=== PATIENT | male | born 1960 | race Caucasian/White ===

== ENCOUNTER 2022-10-30 08:09 | Outpatient (CLI) | payer OTHER, SELFPAY | END 2022-10-30 08:10 | disposition home or self-care (01) | LOC: NFLDREF 12:33 | PROVIDERS: PCP Family Medicine; Referring Provider Family Medicine; Visit Provider Family Medicine | DX: Z00.00 Encounter for general adult medical examination without abnormal findings (principal); I10 Essential (primary) hypertension; E78.5 Hyperlipidemia, unspecified | CPT/HCPCS: 80053; 80061 ==

== ENCOUNTER 2022-11-17 09:03 | Day surgery (SDC) | payer OTHER, SELFPAY ==
[2022-11-17] VITALS (9 sets, daily range): BP systolic 133–150; BP diastolic 72–89; PULSE 60–69; RESP 12–16; TEMP 24.9–36.2; O2SAT 97–100; BMI 28.3
[2022-11-17] MEDS: LACTATED RINGERS 1000 ML 1,000 ML 100 ML IV ×2 (10:14→10:51)
--- NOTE | 2022-11-17 10:21 | W.ANESCHARGE ---
Anesthesia Charges Start Date/Time Anesthesia Start Date: 11/17/22 Anesthesia Start Time: 10:22 Stop Date/Time Anesthesia Stop Date: 11/17/22 Anesthesia Stop Time: 11:48
--- NOTE | 2022-11-17 10:21 | PM.GSPRC ---
Operative Note Pre-op diagnosis: 1. Right inguinal hernia. 2. Right lower quadrant abdominal wall lipoma. Post-op diagnosis: 1. Direct right inguinal hernia. 2. Right lower quadrant lipoma. Type of Procedure: 1. Excision of right lower quadrant lipoma 8 x 2 cm. 2. Open right inguinal hernia repair with mesh. Indications: 62-year-old male was seen in clinic with an enlarging right inguinal hernia. Patient was evaluated with this right inguinal hernia a while ago but because it was not symptomatic, patient did not proceed with surgery. When patient was outside of the country last May and was walking a lot, he noticed right inguinal pain. The pain was worse by the end of the day and better in the morning. Patient was also coughing a lot and noticed that the pain was worse with coughing. On clinical exam with the patient standing up he had a moderately-sized right inguinal hernia. This was reducible. He also had a small asymptomatic left inguinal hernia. Given patient's clinical symptoms and his pain on the right side, an open right inguinal hernia repair was recommended. The procedure was discussed in detail. Risks associated procedure including infection, bleeding, nerve pain, and hernia recurrence were all discussed with the patient, he agreed to proceed. In same-day surgery patient was also noted to have a lipoma in the lateral inguinal canal. This was not painful and has been present for a while. Patient desired this to be removed. Procedure Description: After discussing the risks and benefits of the procedure, the patient signed informed consent.? The operative site was marked and the patient was brought to the operating room and placed on the operating table in supine position.? Care was taken to pad the patient's pressure points.?? The patient was then intubated by anesthesia.?? The operative site was then prepped and draped in the usual sterile fashion.? A time-out was then performed. Surgical site was prepped and draped in sterile fashion. Site of the incision was marked with a marking pen and local anesthetic was injected. An oblique incision was made just above and medial to the right inguinal ligament. Subcutaneous tissue was dissected to external obliques. I first proceeded with excision of the right lower quadrant lipoma. The soft tissue just lateral to the already made incision was divided with cautery until a well circumscribed elongated fatty tumor was identified. This was dissected bluntly and with cautery. It had a vascular appearing pedicle which was clamped and tied with Vicryl tie. The fatty tumor was removed and sent to pathology. It was measuring approximately 8 x 2 cm. Hemostasis was achieved with cautery. I then proceeded with the right inguinal hernia repair. Superficial subcutaneous vascular branches were clamped, divided and tied with 3-0 Vicryl ties. Small incision was made through the external oblique aponeurosis with scalpel. I then used Metzenbaum scissors to dissect under external obliques and extend my incision. Mosquito clamps were placed on the edges of external oblique exposing the inguinal floor. The right Ilioinguinal nerve was identified and was medial to the plane of dissection. This was not excised. I then identified the spermatic cord and the hernia sac. There were was direct inguinal hernia was protruding peritoneal fat. I bluntly dissected subcutaneous tissues around the spermatic cord in order to place Renny drain around the cord structures. Cremasteric fibers were peeled off and dissected off the hernia sac and cord structures. There was an indirect cord lipoma but no evidence of indirect hernia. The cord lipoma was excised with cautery. An extra-large Bard mesh plug was inserted into the preperitoneal space where direct hernia was identified. This was sutured in place with 0-0 Nurolon covering the plug with [place] tissue. A Bard mesh onlay was also used for hernia repair. The mesh onlay was sutured in place with interrupted 0-0 Neurolon sutures to the conjoint tendon medially and shelving edge laterally, pubic tubercle inferiorly. This mesh onlay overlapped the area of mesh plug. Simple interrupted sutures were placed using 0-0 Neurolon at the base of internal inguinal ring making it only large enough to fit a tip of one finger through. Spermatic cord was placed back into scrotum. [place] drain was removed. External oblique aponeurosis was closed with a running 3-0 Vicryl. Additional local anesthetic was injected into subcutaneous tissues. Merlene's fascia and subcutaneous tissue was re-approximated with interrupted Vicryl stitches. Skin incision was closed with 4-0 Monocryl subcuticular stitch. Steri strips and sterile dressing were applied over incision. All counts were correct at the end of the case. Patient tolerated this procedure well and was transferred to PACU in stable condition. Findings: Right lower quadrant lateral abdominal wall lipoma. Direct inguinal hernia Implants: Mesh plug and mesh onlay. Anesthesia: GETA Surgeon: Kurt Mendez MD Estimated blood loss (mL): 5 Additional Specimen Information: 1. Right lower quadrant abdominal wall mass, grossly appearing as lipoma. Condition: stable Disposition: PACU
[2022-11-17] MEDS: CEFAZOLIN 2 GM INJ IVP (10:33)
[2022-11-17] MEDS: BUPIVACAINE 0.25% 30 ML INJECTION (11:30)
--- NOTE | 2022-11-17 11:50 | W.ANESCHARGE ---
Anesthesia Charges Start Date/Time Anesthesia Start Date: 11/17/22 Anesthesia Start Time: 10:22 Stop Date/Time Anesthesia Stop Date: 11/17/22 Anesthesia Stop Time: 11:48
== END 2022-11-17 13:00 | disposition home or self-care (01) ==
PROVIDERS: PCP Family Medicine; Visit Provider Surgery
PROC: (CPT 49505; principal; 2022-11-17 10:45)
DX: K40.90 Unilateral inguinal hernia, without obstruction or gangrene, not specified as recurrent (principal); D17.1 Benign lipomatous neoplasm of skin and subcutaneous tissue of trunk
CPT/HCPCS: 49505; 22903; 830; 88305; C1781; J0330; J0665; J0690; J1100; J2250; J2405; J2704; J3010; J3490; J7120

== ENCOUNTER 2023-11-23 08:16 | Outpatient (CLI) | payer OTHER, SELFPAY | END 2023-11-23 08:17 | disposition home or self-care (01) | LOC: NFLDREF 11-26 06:17 | PROVIDERS: PCP Family Medicine; Referring Provider Family Medicine; Visit Provider Family Medicine | DX: Z00.00 Encounter for general adult medical examination without abnormal findings (principal); E78.5 Hyperlipidemia, unspecified; I10 Essential (primary) hypertension | CPT/HCPCS: 80053; 80061 ==

== ENCOUNTER 2023-12-03 08:18 | Outpatient (CLI) | payer OTHER, SELFPAY ==
--- NOTE | 2023-12-03 08:30 | CRLHL7_ITS ---
For Patients: As a result of the Century Cures Act, medical imaging exams and procedure reports are released immediately into your electronic medical record. You may view this report before your referring provider. If you have questions, please contact your health care provider. INDICATION: Abnormal LFTs COMPARISON: 09/05/2021 TECHNIQUE: Real time peck scale imaging and color Doppler analysis was performed of the right upper quadrant. FINDINGS: The liver measures 14.9 cm. Diffusely increased hepatic echotexture noted throughout the liver. No intrahepatic mass. There is a normal appearance of the hepatic IVC and proximal abdominal aorta. There is no evidence of ascites. The gallbladder is of normal size and there is no evidence of intraluminal stones or sludge. The gallbladder wall measures 1.1 mm in thickness. The common bile duct is of normal size and measures 4.3 mm in diameter at the level of the lion hepatis. The visualized pancreas appears normal. There is no evidence of a stone or hydronephrosis within the right kidney. The right kidney measures 11.6 cm in length. IMPRESSION: Diffuse hepatic steatosis, moderate. Remainder unremarkable. Dictated by Grabiel Cruz MD @ 12/03/2023 11:27:13 AM (Electronically Signed)
== END 2023-12-03 08:19 | disposition home or self-care (01) ==
PROVIDERS: PCP Family Medicine; Visit Provider Family Medicine
DX: R94.5 Abnormal results of liver function studies (principal); K76.0 Fatty (change of) liver, not elsewhere classified; R10.11 Right upper quadrant pain
CPT/HCPCS: 76705

== ENCOUNTER 2023-12-17 07:12 | Outpatient (CLI) | payer OTHER, SELFPAY ==
--- OUTSIDE RECORDS SUMMARY | 2023-12-17 07:15 | XMS_ITS | Continuity of Care Document ---
Author Organization [facility] Address [address] [address] [place] [address] Phone Care Team Providers Care Underground Supervisor Name Role Phone Griselda Alcantar CRNA Unavailable Unavailable Allergies, Adverse Reactions, Alerts Substance Reaction Status Criticality codeine headache, nausea, dry mouth Active No Information Medications Medication Instructions Dosage Effective Dates (start - stop) Status Comments hydrochlorothiazide 12.5 mg capsule take 1 Capsule by oral route every day 12.5 MG - Active simvastatin 40 mg tablet take 1 tablet b y ORAL route every day in the evening 40 MG - Active Procedures Procedure Date Colonoscopy Flex; Dx (sep Pro) 20 Colonoscopy Flex; W/bx 1/mx Level Iv-surg Path Gross/micro 15 Advance Directives Directive Yes / No Effective Date File Name No Information Encounters Encounter Description Practice Location Reason(s) For Visit Diagnoses Date Provider Providers Copied on Encounter [facility], [address] [address], [place], [id number], [place] tel:[phone] Sofia [facility] No Information 0 Ortiz Villalobos. [address] [facility], [facility] [address], [place], [place], [id number], [place]. tel:[phone] Referring Provider: Skylar Linares, [address] [facility] [address], [facility] [place], [address] . tel:[phone] [facility], [address] [address], [place], [id number], [place] tel:[phone] [facility] Personal history of colonic polypsFamily history of polyps in the colonEncounter for screening for malignant neoplasm of colonFamily history of colonic polypsPersonal history of colonic polyps 0 Catrachita Cheng. [address] [facility], [facility] [address], [place], [id number], [place]. tel:[phone] Referring Provider: Referral Self, USE FOR SELF REFERRALS. [facility], [address] [address], [place], [place], [id number], [place] tel:[phone] [facility] No Information 0 Jesse Rivera. [address] [facility], [facility] [address], [place], [id number], [place]. tel:[phone] [facility], [address] [address], [place], [place], [id number], [place] tel:[phone] [facility] Colon polypHemorrhoi dsPersonal history of colon polypFamily history of colon polypsFamily Hx/Colonic PolypsPersonal History Colon PolypsBenign Neoplasm ColonBenign neoplasm of colon, unspecifiedUns pecified hemorrhoidsPer jem history of colonic polypsFamily history of colonic polyps 5 No Information Referring Provider: Referral Self, USE FOR SELF REFERRALS. [facility], [address] [address], [place], [place], [id number], [place] tel:[phone] [facility] Colon Cancer Screening 5 Christian Nur. [address] [facility], [facility] [address], [place], [id number], [place]. tel:[phone] [facility], [address] [address], [place], [place], [id number], [place] tel:[phone] [facility] External Referral 5 Ang Araujo. [address] [facility], [facility] [address], [place], [id number], [place]. tel:[phone] Family History Family Member Type Diagnosis Age At Onset Father Problem (finding) Mother Problem (finding) malignant neoplasm of o vary Brother Problem (finding) Alive and well Father Problem (finding) Colon polyps Daughter Problem (finding) Alive and well Immunizations Vaccine Date Status Comments Influenza administered Note: [facility] bi-d irectional interface ; Source: Other Registry zoster vaccine recombinant administered N ote: [facility] bi-directional interface ; Source: Other Registry zoster vaccine recombinant administered N ote: [facility] bi-directional interface ; Source: Other Registry Influenza administered Note: [facility] bi-d irectional interface ; Source: Other Registry Influenza administered Note: [facility] bi-d irectional interface ; Source: Other Registry Fluzone Quad 6mo or older administered Note: [facility] bi-direct ional interface ; Source: Other Registry tetanus toxoid, reduced diphtheria toxoid, and acellular pertussis vaccine, adsorbed administered Note: [facility] b i-directional interface ; Source: Other Registry Influenza, seasonal, injectable administe red Note: [facility] bi- directional interface ; Source: Other Registry Influenza, seasonal, injectable administe red Note: [facility] bi- directional interface ; Source: Other Registry Novel [id number], all formulations administered Note: [facility] bi-direct ional interface ; Source: Other Registry Payers Payer name Insurance type Covered republican ID Authorjuliannea hoda(s) [employer] [facility] [id number] Social History Type Description Quantity Date Captured Comments Sex Male Smoking Status No Information Chief Complaint And Reason For Visit No Information Reason For Referral Reason For Referral No Information History Of Present Illness Encounter Date Complaint History Of Prese nt Illness No Information Functional Status Date Functional Assessmen t No Information Instructions Date Instruction Additional Infor mation Colon Cancer Prevention Related to Personal history of colonic polyps Colon Cancer Prevention Related to Colon polyp Colon Polyps Related to Colon polyp Hemorrhoids Related to Colon polyp High Fiber Diet Related to Colon polyp Colonoscopy Assessments Type Assessment Date No Information Patient Care Teams Name Effective Dates (start - stop) Status Members No Information
--- NOTE | 2023-12-17 08:34 | W.ANESCHARGE ---
Anesthesia Charges Start Date/Time Anesthesia Start Date: 12/17/23 Anesthesia Start Time: 08:25 Stop Date/Time Anesthesia Stop Date: 12/17/23
--- NOTE | 2023-12-17 08:42 | W.ANESCHARGE ---
Anesthesia Charges Start Date/Time Anesthesia Start Date: 12/17/23 Anesthesia Start Time: 08:25 Stop Date/Time Anesthesia Stop Date: 12/17/23 Anesthesia Stop Time: 09:06
--- NOTE | 2023-12-17 08:49 | W.ANESCHARGE ---
Anesthesia Charges Start Date/Time Anesthesia Start Date: 12/17/23 Anesthesia Start Time: 08:25 Stop Date/Time Anesthesia Stop Date: 12/17/23 Anesthesia Stop Time: 09:06
== END 2023-12-17 07:13 | disposition home or self-care (01) ==
LOC: OP CLINIC 07:13
PROVIDERS: PCP Family Medicine; Visit Provider Surgery
DX: D12.2 Benign neoplasm of ascending colon (principal); D12.4 Benign neoplasm of descending colon; K62.89 Other specified diseases of anus and rectum; K64.8 Other hemorrhoids
CPT/HCPCS: 00811; 45385; 88305; J2704

== ENCOUNTER 2024-01-20 07:55 | Outpatient (CLI) | payer OTHER, SELFPAY ==
--- NOTE | 2024-01-20 08:00 | CRLHL7_ITS ---
For Patients: As a result of the Century Cures Act, medical imaging exams and procedure reports are released immediately into your electronic medical record. You may view this report before your referring provider. If you have questions, please contact your health care provider. INDICATION: Right upper quadrant abdominal pain. Normal gallbladder ultrasound. TECHNIQUE: 5.4 mCi Tc-99m labeled Mebrofenin. 1.91 mcg Kinevac IV. COMPARISON: Correlation is made with a right upper quadrant ultrasound December 03, 2023. FINDINGS: Normal uptake and excretion of tracer by the liver. Activity is identified promptly within the gallbladder and extrahepatic biliary tree within 5 minutes after injection. The gallbladder continues to fill up to 1 hour. No biliary leak. After the administration of CCK, the gallbladder ejection fraction is calculated at 34 percent which is below the lower limit of normal of 35 percent. IMPRESSION: 1. No evidence for cystic duct or common duct obstruction. No biliary leak. No evidence for acute cholecystitis. 2. Abnormally low gallbladder ejection fraction which can be seen in chronic acalculous cholecystitis or biliary dyskinesia. Please correlate clinically. Dictated by Maycol Best MD @ 01/20/2024 10:41:52 AM (Electronically Signed)
== END 2024-01-20 07:56 | disposition home or self-care (01) ==
LOC: NM 07:56
PROVIDERS: PCP Family Medicine; Visit Provider Family Medicine
DX: R10.11 Right upper quadrant pain (principal)
CPT/HCPCS: 78227; A9537; J2805

== ENCOUNTER 2024-04-03 14:15 | Outpatient (RCR) | payer BC, OTHER, SELFPAY ==
--- NOTE | 2023-12-14 15:50 | PT.OPEX ---
PT [place] [facility] Eval PT [facility] Out[facility] Eval Start: 12/14/23 07:27 Freq: Status: Active Protocol: Document 12/14/23 07:28 CRP (Rec: 12/14/23 15:50 CRP [id number]) E-signed By Hi Canales PT Physical Therapy Outpatient Evaluation Insurance Information Recert Due Date 03/13/24 Insurance Name [employer] Medical Diagnosis Low Back Pain Referring MD Dr Brasher Subjective Subjective Pt reports that late Spring early Summer started noticing LBP after playing soccer. This pain would last for days. He decided to take some time off . Pain would subside and then he would re-aggravate his sxs trying to return to soccer or paddle ball. Month ago he really strained his back in awkward position fixing something with house. This really strained his back about a month ago. Then a week ago he was lunging to make a play in pickle ball and re- aggravated his back again. He is still feeling this issue. Currently he has mild R sided LBP. Pain can be anywhere across his low back. When most aggravated his pain is 5/ 10. Pain increases with any bending, twisting or awkward positions. Has not been able to do his classic stretching exer that he would do prior to playing soccer. Sleep is fine. No LE pain or numbness/ tingling. 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 Ext min dec with pain at end range. R SB min dec, L SB mod dec with R sided LBP, bilat rot WNL, Pain going into R rotation Bilat hip ROM WN SLR negative bilat MMT: Myotomes WNL bilat Segmental testing: UPAs painful grade 3 L4-5. Also sore TL junction but not concordant. R rot and L SB are pain free with mobility testing L rotation painful at the R low back Pt shows painful arc with motion going from flexed(open) position into neutral/ extended(closed) position Assessment Assessment/Impression Pt presents to the clinic with signs and sxs that appear secondary to lumbar spine segmental mobility dysfunction and probable facet mediated pain. Pts presentation is characterized by painful arc with lumbar spine ROM, poor lumbopelvic control, lower thoracic spine segmental hypomobility, painful hypomobility of L4-5 and poor tolerance to closed chain activity. Skilled PT is necessary to incorporate ther ex, nm jayjay, manual therapy and pt education to decrease pain and improve functional mobility. Primary Functional Limitations Going sit to stand Lifting Carrying Running Playing soccer Playing pickle ball Plan of Care Rehabilitation Potential Excellent Physical Therapy Goals 1. Pt will be independent with HEP in 6 weeks. 2. Pt will play pickle ball without c.o in 10 weeks. 3. Pt will play soccer without co in 12 weeks. Coordination/Communication With Referral Source Treatment Plan/Direct Interventions Joint Mobilization,Manual Therapy,Neuromuscular Re-ed, Self-Care/Home Management, Therapeutic Activities, Therapeutic Exercises Frequency/Duration 1-2x/wk for 12 wks Patient Will Be Discharged From Therapy Completion of LTG(s),Skills Plateau,Independent w/HEP, Independently Progressing Evaluation Billing Untimed Code Treatment Minutes 40 Complexity Moderate Certification Information Initial Certification Date 12/14/23 Ending Certification Date 03/13/24 Provider Signature Required Yes Provider Signature Shows Agreement With POC & Medical Necessity Physician NPI Number Write NPI# Here Physician Comment/Change : Physician Signature & Date Requested Please Sign/Date Here
== END 2024-08-01 23:59 | disposition home or self-care (01) ==
PROVIDERS: PCP Family Medicine; Visit Provider Family Medicine
DX: M54.50 Low back pain, unspecified (principal); Z51.89 Encounter for other specified aftercare
CPT/HCPCS: 97110; 97140; 97162

== ENCOUNTER 2025-01-26 08:50 | Outpatient (CLI) | payer BC, SELFPAY | END 2025-01-26 08:51 | disposition home or self-care (01) | LOC: NFLDREF 01-29 18:04 | PROVIDERS: PCP Family Medicine; Referring Provider Family Medicine; Visit Provider Family Medicine | DX: E78.5 Hyperlipidemia, unspecified (principal) | CPT/HCPCS: 80053; 80061 ==